=== PATIENT | male | born 1950 | race Caucasian/White ===

== ENCOUNTER 2019-07-01 13:17 | Emergency (ER) | payer OTHER ==
[2019-07-01 13:26] VITALS: BMI 24.8
--- NOTE | 2019-07-01 13:28 | PDOC ---
Rapid Medical Evaluation Time Seen by Provider: 07/01/19 13:21 Medical Evaluation: 07/01/19 13:21 CC: throat pain x1 month with vocal changes; referred to ENT by PMD but has not followed up PE: muffled voice. OP- WNL. No stridor. ?mucous in throat Orders: labs, CT neck r/o mass Patient will proceed to ED for evaluation. 07/01/19 15:07 Discharge Disposition - Diagnosis Throat pain in adult - Referrals Referrals: Burt St MD [Primary Care Provider] - - Patient Instructions - Post Discharge Activity
[2019-07-01] MEDS ORDERED: DEXAMETHASONE LIQUID 0.5 MG/5 ML PO ONE (13:29)
[2019-07-01] MEDS ORDERED: DEXAMETHASONE SOD PHOSPHATE 10 MG/1 ML VIAL ONE (13:47)
[2019-07-01 14:06] LABS: BASO % 0.6 % (0-2.0); EOS % 2.8 % (0-4.5); HEMATOCRIT 40.2 % (35.4-49); HEMOGLOBIN 13.8 GM/dL (11.7-16.9); LYMPH % 21.7 % (8-40); MCH 31.6 pg (25.7-33.7); MCHC 34.4 g/dl (32.0-35.9); MEAN PLT VOLUME 7.3 fl (7.5-11.1); MONO % 7.4 % (3.8-10.2); NEUT % 67.5 % (42.8-82.8); PLATELET COUNT 302 K/MM3 (134-434); RBC 4.37 M/mm3 (4.00-5.60); WHITE BLOOD COUNT 9.4 K/mm3 (4.0-10.0)
--- NOTE | 2019-07-01 14:25 | PDOC ---
History of Present Illness - General Chief Complaint: Sore Throat Stated Complaint: SORE THROAT Time Seen by Provider: 07/01/19 13:21 Past History - Past Medical History Allergies/Adverse Reactions: Allergies Allergy/AdvReac Type Severity Reaction Status Date / Time No Known Allergies Allergy Verified 07/01/19 13:27 Home Medications: Ambulatory Orders Albuterol Sulfate Inhaler - [Ventolin Hfa Inhaler -] 1 - 2 inh PO Q4H 07/01/19 Celecoxib [Celebrex -] 200 mg PO DAILY 07/01/19 Diltiazem HCl [Diltiazem ER] 120 mg PO DAILY 07/01/19 Hydroxyzine HCl 10 mg PO DAILY 07/01/19 Ipratropium [place] [Atrovent Hfa] 12.9 gm IH PRN 07/01/19 Phenytoin Na Extended [Dilantin -] 100 mg PO TID 07/01/19 Ranitidine HCl 150 mg PO BID 07/01/19 COPD: No CHF: Yes HTN: Yes Hypercholesterolemia: Yes - Psycho Social/Smoking Cessation Hx Smoking History: Former smoker Have you smoked in the past 12 months: No Information on smoking cessation initiated: No Hx Alcohol Use: No Drug/Substance Use Hx: No *Physical Exam - Vital Signs Last Vital Signs Temp Pulse Resp BP Pulse Ox 97.7 F 91 H 22 H 141/65 97 07/01/19 13:22 07/01/19 13:22 07/01/19 13:22 07/01/19 13:22 07/01/19 13:22 ED Treatment Course - LABORATORY CBC & Chemistry Diagram: 07/01/19 13:52 07/01/19 13:52 - ADDITIONAL ORDERS Additional order review: 07/01/19 13:52 RBC 4.37 MCV 92.0 MCHC 34.4 RDW 13.0 MPV 7.3 L Neutrophils % 67.5 Lymphocytes % 21.7 Monocytes % 7.4 Eosinophils % 2.8 Basophils % 0.6 Medical Decision Making - Medical Decision Making 07/01/19 14:18 68M PMH HTN, Epilepsy, reactive airway dz presenting with throat pain for 1 month prompted to come to ED for evaluation due to fever today. Took 2 tylenol. Pt was evaluated for this throat pain w/ voice change recently by PCP and referred to ENT but did not follow up. Pt endorses spitting up food and drink. No difficulty breathing. +weight loss +smoking hx CONSTITUTIONAL: endorses subjective fever today HEENT: Endorses throat pain; voice change RESP: endorses long standing FIELDS (albuterol); denies SOB CARD: Denies chest pain, palpitations GI: endorses GERD. Denies N / V : Denies dysuria, hematuria, frequency GEN: NAD, AAOX3 HEENT: NC/AT. No facial asymmetry. Moist mucous membranes; no obvious posterior oropharynx, tonsilor, or uvular edema; nonerythematous. TTP of the left floor of mouth without tongue elevation or purulence. Muffled voice. TTP of the right anterior aspect of the neck under the angle of the jaw between trachea and SCM. There is no overlying skin changes / erythema of the face or neck. Inspiratory stridor of the right neck. FROM of neck. Not drooling. CV: S1/S2, RRR, no m/r/g LUNG: good/adequate air entry b/l. stridor vs inspiratory wheezes throughout GI: Soft, ndnt, +BS, no guarding, no rebound. MSK: No obvious deformities of all extremities. SKIN: Warm, dry, no rashes appreciated. PSYCH: Normal mood and affect. NEURO: Moving all extremities well. 68M w/ one month of throat pain brought in for eval due to fever. + voice changes (muffled). TTP of the left floor of mouth and right anterior aspect of neck. Tolerating secretions, not drooling. Inspiratory stridor at right neck; unclear if lung findings are transmitted from upper airway. DDx - ICE CREAM CHEF, submandiluar abscess, foreign body obstruction, malignancy, airway edema. - RME orders reviewed: labs, CT, steroids - monitor airway 07/01/19 14:30 labs reviewed 07/01/19 15:[address] w/o contrast 07/01/19 17:03 CT Neck / Soft tissue w/o contrast: IMPRESSION: 2 cm mass arising from the right larynx with displacement of surrounding structures leading to significant compromise of the glottic airway. Second soft tissue mass arising from the right ethmoidal air cells extending into the nasopharynx with suggestion of ostiomeatal complex occlusion on the right and right maxillary sinus disease. No gross lymphadenopathy identified. No ENT at this hospital Transfer to [facility] ENT 07/01/19 17:16 Call placed to [facility] center; awaiting callback 07/01/19 17:25 d/w [facility] ENT Dr. Carrion: ED to ED [facility] to [facility]. ED attending endorsed to [facility] ED Dr. Rios Patient consented for transfer. Discharge - Discharge Information Problems reviewed: Yes Clinical Impression/Diagnosis: Throat pain in adult, Laryngeal mass Condition: Stable Disposition: TRANSFER ACUTE CARE/OTHER HOSP - Follow up/Referral Referrals: Burt St MD [Primary Care Provider] - - Patient Discharge Instructions - Post Discharge Activity
[2019-07-01 14:42] LABS: ALBUMIN 3.9 g/dl (3.4-5.0); BILIRUBIN,TOTAL 0.3 mg/dL (0.2-1); BLOOD UREA NITROGEN 17.2 mg/dL (7-18); CALCIUM 9.4 mg/dL (8.5-10.1); CREATININE 1.2 mg/dL (0.55-1.3); POTASSIUM 4.4 mmol/L (3.5-5.1); TOT PROT 7.8 g/dl (6.4-8.2)
--- NOTE | 2019-07-01 15:03 | PDOC ---
Documentation entered by Cristina Franco SCRIBE, acting as scribe for Amanda Faye MD. Amanda Faye MD: This documentation has been prepared by the Salvador hanna Adrianna, SCRIBE, under my direction and personally reviewed by me in its entirety. I confirm that the documentation accurately reflects all work, treatment, procedures, and medical decision making performed by me. Attending Attestation - Resident Resident Name: Alejandro You - ED Attending Attestation I have performed the following: I have examined & evaluated the patient, The case was reviewed & discussed with the resident, I agree w/resident's findings & plan, Exceptions are as noted - HPI HPI: 68 year old male, with PMH of HTN, epilepsy, and reactive airway disease,, presents with throat pain for one month. Patient was evaluated in the past for throat pain and softened voice change by her PCP, and was advised to follow up with ENT but never did. He complains of throat pain, and developed a fever today. Patient notes she has been spitting up solids and liquids. Denies any dyspnea. unable to tolerate PO for few days, has been losing weight lost 5 lbs. does have h/o prolonged tobacco use for many years, quit 2 yrs ago. Allergies: NKA, NKDA Surgical History: None reported Social History: Former smoker. No toxic habits. PCP: Dr. St 07/01/19 14:59 - Physicial Exam PE: 07/01/19 15:00 awake alert lungs clear no audible stridor. normal resp effort. lungs clear bilat heart rrr no mrg abd soft nt nd ext wwp no edema no calf tenderness. skin warm and dry HEENT exam noted for right submandibular palp node 1 cm. - Medical Decision Making 07/01/19 15:01 68 yo male h/o mult med history, prolonged tobacco use with progressive dysphonia, now n/v inability to keep food down. weight loss supsicious for malignancy. plan ct neck ordered. pt will likely require admission to due to inability to tolerate PO. 07/01/19 17:[address] Rios at [facility] ( ED attending ) who accepted transfer to ED also d/w ENT there.
[2019-07-01] MEDS ORDERED: SODIUM CHLORIDE 0.9% 500 ML INFUS.BAG IV ONE (17:45)
[2019-07-01 17:51] VITALS: TEMP 98.4
[2019-07-01 20:06] VITALS: BP 128/78; PULSE 89
== END 2019-07-01 20:06 | disposition short-term general hospital (02) ==
LOC: JER 13:17
DX: J38.7 Other diseases of larynx (principal); I11.0 Hypertensive heart disease with heart failure; I50.9 Heart failure, unspecified; G40.909 Epilepsy, unspecified, not intractable, without status epilepticus; E78.00 Pure hypercholesterolemia, unspecified; Z87.891 Personal history of nicotine dependence
CPT/HCPCS: 36415; 70490-TC; 70491-TC; 80053; 85025; 99285-25; Q9967